=== PATIENT | female | born 1965 | race Caucasian/White ===

== ENCOUNTER 2023-10-27 08:04 | Day surgery (SDC) | payer OTHER ==
--- NOTE | 2023-10-27 08:08 | HP ---
DATE OF SURGERY: 10/27/2023 HISTORY OF PRESENT ILLNESS: The patient is a 58-year-old with no bloody stools. Some change in bowel habits with some increased stool. Last colonoscopy she had a polyp. Family history negative for colon cancer. PAST MEDICAL HISTORY: Hyperlipidemia, reflux, heartburn. PAST SURGICAL HISTORY: Sinus surgery. Cholecystectomy. Thermal ablation. Bilateral tubal. MEDICATIONS: Vitamin D2, Xyzal, rosuvastatin, omeprazole, Pristiq. ALLERGIES: NKDA. FAMILY HISTORY: Pulmonary embolism, renal disease, diabetes, heart disease. Negative for colon cancer. SOCIAL HISTORY: No smoking or alcohol abuse. REVIEW OF SYSTEMS: Twelve systems reviewed per admission assessment. No chest pain or palpitations. Other systems negative or noncontributory as above and per preadmission questionnaire. PHYSICAL EXAMINATION: Height 5'4". BMI 25. GENERAL: No acute distress. HEENT: Sclerae nonicteric. EOMI. Oral mucous membranes moist. NECK: No JVD. CHEST: Equal excursion, nonlabored breathing. CVS: Regular rate and rhythm. ABDOMEN: Soft. No peritoneal signs. EXTREMITIES: No significant edema. NEURO: Alert, oriented, moving extremities symmetrically. RECTAL: Deferred timed to endoscopy exam. PSYCH: Appropriate mood and affect. SKIN: Dry. IMPRESSION: Some change in bowel habits, prior history of polyps. The patient is in need of colonoscopy for evaluation to look for colitis, neoplasia, polyp or other etiology. She was shown the risk sheet, explained the procedure in detail including but not limited to risk of bleeding or infection, risk of bowel injury or perforation, risk of missed or nondiagnosis or incomplete exam possibly requiring barium enema, other studies or procedures, general risk of anesthesia or sedation, risk of bowel prep but not limited to. Otherwise continue medication for depression, reflux and heartburn. Will proceed with outpatient colonoscopy under MAC anesthesia.
[2023-10-27] MEDS ORDERED: Lactated Ringers 1,000 ML IV ONE (08:48)
[2023-10-27] MEDS ORDERED: Lactated Ringers 1,000 ML IV SCH (09:00)
[2023-10-27] MEDS ORDERED: DIPRIVAN 200 MG/20 ML IV ONE ×2 (11:01→11:13)
[2023-10-27] MEDS ORDERED: Xylocaine-Mpf 2% 5 Ml Vial ONE (11:01)
[2023-10-27 11:50] VITALS: O2SAT 100
[2023-10-27 12:06] VITALS: BP 124/80; PULSE 64; RESP 16
[2023-10-27 13:28] VITALS: TEMP 97
--- NOTE | 2023-10-28 09:44 | OP ---
SURGERY DATE/TIME: 10/27/2023 1100 PREOPERATIVE DIAGNOSIS: Change in bowel habits, history of polyps, need for colonoscopy. POSTOPERATIVE DIAGNOSES: 1) ASA Class II. 2) Fair bowel prep. 3) Withdrawal time nine minutes. 4) Small polyps. PROCEDURES: 1) Colonoscopy to terminal ileum. 2) Retrograde ileoscopy. 3) Random cold biopsy of ileum to evaluate for microscopic ileitis. 4) Random biopsy of the colon to evaluate for microscopic colitis. 5) Hot biopsy polypectomy small early polyp versus hyperplastic lesion transverse colon. 6) Hot biopsy polypectomy small early polyp versus hyperplastic lesion sigmoid colon. SURGEON: Dr. Hsosein Awan. ANESTHESIA: MAC. ESTIMATED BLOOD LOSS: Minimal. INDICATIONS: As noted above. Risks and benefits explained in detail but not limited to and consent obtained. DESCRIPTION OF PROCEDURE AND FINDINGS: The patient is taken to the endoscopy room. MAC anesthesia induced. After official time out and no disagreement with planned procedure, digital rectal exam did not reveal any rectal masses. Video colonoscope inserted and passed up through the tortuous sigmoid, descending, transverse and ascending colon. With external pressure the scope was able to be passed around to the cecum. Appendiceal orifice and valve well visualized. Prep overall is fair with a little limited with liquidy semisolid stool scattered throughout the colon slightly limiting the exam for small lesions this is suction irrigated as clear as possible and photo documented appendiceal orifice and ileocecal valve. The ileum was unremarkable. Cold biopsy taken to evaluate for evaluation of microscopic ileitis. The scope was carefully pulled back over the next nine minutes. Random cold biopsies of colon were taken for microscopic colitis. There was no macroscopic colitis. The scope is carefully pulled back to transverse colon. A small, vague early polyp versus hyperplastic lesion removed with hot biopsy forceps. Good hemostasis noted this is repeated in the sigmoid colon of small early polyp versus hyperplastic lesion. The scope is withdrawn. The patient tolerated the procedure well. There were no immediate complications. I spoke with the family out in the waiting area.
== END 2023-10-27 12:20 | disposition home or self-care (01) ==
LOC: SDC 08:04
PROVIDERS: ATTEND Surgery
DX: Z09 Encounter for follow-up examination after completed treatment for conditions other than malignant neoplasm (principal); Z86.010 Personal history of colon polyps; R19.4 Change in bowel habit; K63.5 Polyp of colon
CPT/HCPCS: J2704

== ENCOUNTER 2023-12-29 09:23 | Day surgery (SDC) | payer OTHER ==
--- NOTE | 2023-12-29 08:37 | HP ---
DATE OF SURGERY: 12/29/2023 HISTORY OF PRESENT ILLNESS: The patient is a 58-year-old had colonoscopy in the past, had some small polyps and now has some dysphagia upper, mid and lower esophagus mainly with solids. She chokes on water at times. No prior EGD. No upper GI in the past. PAST MEDICAL HISTORY: Depression, hyperlipidemia, reflux, heartburn. PAST SURGICAL HISTORY: Deviated septum surgery. Cholecystectomy. Uterine ablation. Tubal ligation. MEDICATIONS: Vitamin D2, Xyzal, rosuvastatin for hyperlipidemia, omeprazole, Pristiq. ALLERGIES: NKDA. FAMILY HISTORY: Grandfather had esophageal or stomach cancer. Renal disease, diabetes, heart disease and pulmonary embolism in the past. SOCIAL HISTORY: No smoking or alcohol abuse. REVIEW OF SYSTEMS: Twelve systems reviewed. No chest pain or palpitations. Other systems negative or noncontributory as above and per preadmission questionnaire. PHYSICAL EXAMINATION: Height 5 feet 4 inches. BMI 25.23. GENERAL: No acute distress. HEENT: Sclerae nonicteric. EOMI. Oral mucous membranes moist. NECK: No JVD. CHEST: Equal excursion, nonlabored breathing. CVS: Regular rate and rhythm. ABDOMEN: Soft. EXTREMITIES: No cyanosis or edema. NEURO: Alert, oriented, moving extremities symmetrically. PSYCH: Appropriate mood and affect. SKIN: Dry. IMPRESSION: Dysphagia some upper to mid to lower esophagus. Family history of esophageal cancer in a grandfather. The patient is in need of EGD possible biopsy possible dilatation. She was shown the risk sheet explained the procedure in detail including bleeding or infection, risk of bowel injury or perforation, risk of missed or nondiagnosis or incomplete exam, possibly requiring barium swallow, other studies or procedures or using more significantly harder dilators. She understands risk of no improvement in swallowing that this could be functional or neurologic issue or mechanical narrowing. She understands risk of perforation could require open procedure or could require stent placement at a tertiary center. Possibility if dilatation is accomplished and does improve her swallowing, she may need repeated again down the road. General risk of anesthesia, DVT, risk of perforation, remote risk of mortality but not limited to, will proceed with EGD, possible biopsy and possible dilatation as an outpatient. Otherwise, continue medication for reflux, depression, hyperlipidemia.
[2023-12-29] MEDS ORDERED: Lactated Ringers 1,000 ML IV ONE (09:40)
[2023-12-29] MEDS: Lactated Ringers 1,000 ML IV SCH (09:48)
[2023-12-29] MEDS ORDERED: DIPRIVAN 200 MG/20 ML IV ONE (12:13)
[2023-12-29] MEDS ORDERED: Xylocaine-Mpf 2% 5 Ml Vial ONE (12:13)
[2023-12-29] MEDS ORDERED: Versed 2 MG/2 ML Injection ONE (12:15)
[2023-12-29 12:59] VITALS: RESP 16
[2023-12-29 13:15] VITALS: BP 127/95; PULSE 65; TEMP 98.2; O2SAT 100
--- NOTE | 2023-12-30 08:22 | OP ---
SURGERY DATE/TIME: 12/29/2023 1213 PREOPERATIVE DIAGNOSIS: Dysphagia. POSTOPERATIVE DIAGNOSES: 1) Dysphagia. 2) Gastric erythema, biopsy pending to evaluate for gastritis or Helicobacter pylori. 3) Proximal and distal esophageal narrowing and spasm (symptomatic per patient) without evidence of any mass. PROCEDURES: 1) EGD with cold biopsy of antrum for Helicobacter pylori. 2) Cold biopsy of the distal esophagus to evaluate for inflammation or eosinophilic esophagitis. 3) Cold biopsy mid esophagus to evaluate for eosinophilic esophagitis. 4) Distal esophageal balloon dilatation (size 20 balloon). 5) Proximal esophageal dilatation (size 20 balloon). SURGEON: Dr. Greg Awan M.D. ANESTHESIA: MAC. ESTIMATED BLOOD LOSS: Minimal. INDICATIONS: As noted above. Risks and benefits explained in detail and not limited to and consent obtained. DESCRIPTION OF PROCEDURE AND FINDINGS: The patient is taken to the endoscopy room. MAC anesthesia introduced. After official time out and no disagreement with planned procedure, a bite block positioned. Video gastroscope passed down the oropharynx. There was a little bit of proximal esophageal narrowing and spasm. There was no evidence of any mass or lesion to biopsy. The scope passed down. Scope is able to be passed through here. Distal esophagus had a little bit of narrowing and spasm. No evidence of any obvious mass or lesion to biopsy. Z-line was fairly crisp. The scope passed down through the junction of the third and fourth portion of the duodenum. Duodenum is grossly unremarkable. Scope pulled back in the stomach. She had gastric erythema. There were no ulcers, no erosions. Cold biopsy is taken to evaluate for Helicobacter pylori. On retroflex, the gastroesophageal junction snug against the scope. There were no signs of any significant hiatal hernia on exam on retroflex. The scope is straightened and pulled back. Z-line was fairly crisp. No sign of erosions or masses but given her narrowed area and complaints of symptoms there I felt it warranted dilatation. Cold biopsy taken just above there to evaluate for microscopic inflammation and in the mid esophagus to evaluate for eosinophilic esophagitis and to rule out other causes of her dysphagia. The scope is passed back down in the stomach and 20 balloon catheter casrefully inserted, pulled up through distal esophageal narrowing and carefully inflated. First stage 30 seconds, second stage 30 seconds and final stage size 20 balloon dilator for 2 minutes. The balloon was then released, decompressed and pulled back up to the proximal esophageal narrowing and spasm area. The balloon was then re-inflated first stage for 30 seconds, second stage for 30 seconds and final stage for about 2 minutes. The catheter is then released. After waiting 2 minutes the balloon catheter is decompressed and the balloon catheter removed. The scope much more easily passed through the proximal and esophageal narrowed area. There were no signs of any full thickness issues or injury. The scope is withdrawn. The patient tolerated the procedure well. Findings discussed with the family out in the waiting area.
== END 2023-12-29 13:24 | disposition home or self-care (01) ==
LOC: SDC 09:23
PROVIDERS: ATTEND Surgery
DX: K31.89 Other diseases of stomach and duodenum (principal); R13.10 Dysphagia, unspecified; Z80.0 Family history of malignant neoplasm of digestive organs; K22.2 Esophageal obstruction
CPT/HCPCS: C1726; J2250; J2704